=== PATIENT | male | born 1965 | race Caucasian/White ===

== ENCOUNTER 2017-08-18 10:07 | Emergency (ER) | payer MEDICAID ==
[2017-08-18] MEDS ORDERED: methylPREDNISolone sod succ 125mg/2ml vial IM ONE (10:25)
[2017-08-18] MEDS ORDERED: METH4TAB81 PO (10:41)
[2017-08-18 11:13] VITALS: BP 145/89
== END 2017-08-18 11:14 | disposition home or self-care (01) ==
LOC: ER 10:07
DX: M25.461 Effusion, right knee (principal); I10 Essential (primary) hypertension; G89.29 Other chronic pain; R11.0 Nausea
CPT/HCPCS: 96372; 99284; J2930

== ENCOUNTER 2017-09-03 22:46 | Emergency (ER) | payer MEDICAID ==
[~2017-09-03] VITALS: Ht 180.3 cm; Wt 95.4 kg
[~2017-09-03 22:46] MED LIST: METH4TAB81 PO
[2017-09-04] MEDS ORDERED: ondansetron/PF 4mg/2ml inj IV ONE (00:40)
[2017-09-04] MEDS ORDERED: normal saline 1000ML IV soln IVB ONE (00:40)
[2017-09-04] MEDS ORDERED: morphine 4 MG/ML inj SYRINge IV ONE (00:40)
[2017-09-04 00:58] LABS: BASOPHILS # (AUTO) 0.1 X10'3 (0-0.2); EOSINOPHILS # (AUTO) 0.2 X10'3 (0-0.9); EOSINOPHILS % (AUTO) 1.7 % (0-6); HEMATOCRIT 50.5 % (42.0-52.0); HEMOGLOBIN 16.6 g/dl (14.0-17.9); LYMPHOCYTES # (AUTO) 3.7 X10'3 (1.1-4.8); LYMPHOCYTES % (AUTO) 31.2 % (21-51); MEAN CORPUSCULAR HEMOGLOBIN 32.1 PG (27.0-31.0); MEAN CORPUSCULAR HGB CONC 32.9 % (33.0-36.5); MEAN CORPUSCULAR VOLUME 97.4 FL (78-98); MEAN PLATELET VOLUME 10.2 FL (7.4-10.4); MONOCYTES # (AUTO) 0.7 X10'3 (0-0.9); MONOCYTES % (AUTO) 5.7 % (2-12); NEUTROPHILS # (AUTO) 7.2 X10'3 (1.8-7.7); NEUTROPHILS % (AUTO) 60.4 % (42-75); PLATELET COUNT 130 X10'3 (140-440); RED BLOOD COUNT 5.19 X10'6 (4.70-6.10); RED CELL DISTRIBUTION WIDTH 12.3 % (11.5-14.5); WHITE BLOOD COUNT 11.9 X10'3 (4.5-11.0)
[2017-09-04 01:09] LABS: ALANINE AMINOTRANSFERASE 31 U/L (12-78); ALBUMIN/GLOBULIN RATIO 1.1 (1.1-1.5); ALKALINE PHOSPHATASE 76 IU/L (46-116); ANION GAP 10 (8-16); ASPARTATE AMINO TRANSFERASE 16 U/L (10-37); BILIRUBIN,TOTAL 0.7 MG/DL (0.1-1.0); BLOOD UREA NITROGEN 9 MG/DL (7-18); BUN/CREATININE RATIO 9.1 (5.4-32.0); CHLORIDE 99 MMOL/L (99-107); CREATININE 0.99 MG/DL (0.60-1.10); GLUCOSE 88 MG/DL (70-104); LIPASE 92 U/L (73-393); SODIUM 136 MMOL/L (135-145); TOTAL CARBON DIOXIDE 27.3 MMOL/L (24-32); TOTAL PROTEIN 7.7 G/DL (6.4-8.2); eGFR 79 ML/MIN
[2017-09-04] MEDS ORDERED: iohexol 300mg/ml 100ml inj. ONE (01:25)
[2017-09-04 02:31] VITALS: BP 108/57
[2017-09-04] MEDS ORDERED: ONDA4TAB9 PO (03:04)
[2017-09-04] MEDS ORDERED: CIPR-259 PO (03:04)
[2017-09-04] MEDS ORDERED: SUCR1TAB34 PO (03:04)
[2017-09-04] MEDS ORDERED: PANT20TA3 PO (03:04)
[2017-09-04] MEDS ORDERED: METR500T PO (03:04)
== END 2017-09-04 03:27 | disposition home or self-care (01) ==
LOC: ER 22:46
DX: K29.80 Duodenitis without bleeding (principal); K27.9 Peptic ulcer, site unspecified, unspecified as acute or chronic, without hemorrhage or perforation; K52.9 Noninfective gastroenteritis and colitis, unspecified; I10 Essential (primary) hypertension; G89.29 Other chronic pain; F17.200 Nicotine dependence, unspecified, uncomplicated; Z79.899 Other long term (current) drug therapy
CPT/HCPCS: 36415; 74177; 76700; 80053; 83690; 85025; 96361; 96374; 96375; 99285; J2270; J2405; J7030; Q9967

== ENCOUNTER 2018-03-20 17:48 | Emergency (ER) | payer MEDICAID ==
[~2018-03-20] VITALS: Ht 180.3 cm; Wt 112.7 kg
[~2018-03-20 17:48] MED LIST changes: +PANT20TA3 PO; +SUCR1TAB34 PO
[2018-03-20 19:27] LABS: BASOPHILS % (AUTO) 0.6 % (0-1); EOSINOPHILS # (AUTO) 0.2 X10'3 (0-0.9); EOSINOPHILS % (AUTO) 2.5 % (0-6); HEMATOCRIT 51.2 % (42.0-52.0); HEMOGLOBIN 17.3 g/dl (14.0-17.9); LYMPHOCYTES # (AUTO) 2.6 X10'3 (1.1-4.8); LYMPHOCYTES % (AUTO) 32.5 % (21-51); MEAN CORPUSCULAR HEMOGLOBIN 33.7 PG (27.0-31.0); MEAN CORPUSCULAR HGB CONC 33.8 % (33.0-36.5); MEAN CORPUSCULAR VOLUME 99.9 FL (78-98); MEAN PLATELET VOLUME 10.1 FL (7.4-10.4); MONOCYTES # (AUTO) 0.5 X10'3 (0-0.9); MONOCYTES % (AUTO) 6.4 % (2-12); NEUTROPHILS # (AUTO) 4.7 X10'3 (1.8-7.7); PLATELET COUNT 122 X10'3 (140-440); RED BLOOD COUNT 5.12 X10'6 (4.70-6.10); RED CELL DISTRIBUTION WIDTH 12.6 % (11.5-14.5)
[2018-03-20 19:35] LABS: CLARITY,URINE CLEAR (Clear); COLOR,URINE YELLOW (Yellow); GLUCOSE, URINE NEGATIVE (Neg); KETONES,URINE NEGATIVE (Neg); NITRITES, URINE NEGATIVE (Neg); OCCULT BLOOD,URINE NEGATIVE (Neg); PH,URINE 5.5 (4.8-8.0); PROTEIN,URINE NEGATIVE (Neg); UA COLLECTION TYPE VOIDED; UROBILINOGEN,URINE 0.2 E.U/dL (0.2-1.0)
[2018-03-20 19:36] LABS: LEUKOCYTE ESTERASE ,URINE NEGATIVE (Neg)
[2018-03-20 19:42] LABS: ALANINE AMINOTRANSFERASE 48 U/L (12-78); ALBUMIN 4.2 G/DL (3.4-5.0); ALBUMIN/GLOBULIN RATIO 1.1 (1.1-1.5); ALKALINE PHOSPHATASE 63 IU/L (46-116); ANION GAP 10 (8-16); ASPARTATE AMINO TRANSFERASE 27 U/L (10-37); BILIRUBIN,TOTAL 0.8 MG/DL (0.1-1.0); BLOOD UREA NITROGEN 9 MG/DL (7-18); BUN/CREATININE RATIO 9.8 (5.4-32.0); CALCIUM 9.3 MG/DL (8.5-10.1); CHLORIDE 100 MMOL/L (99-107); CREATININE 0.92 MG/DL (0.60-1.10); GLUCOSE 101 MG/DL (70-104); LIPASE 80 U/L (73-393); PROTHROMBIN TIME 10.5 SECONDS (9.0-12.0); SODIUM 139 MMOL/L (135-145); TOTAL CARBON DIOXIDE 28.8 MMOL/L (24-32); TOTAL PROTEIN 7.9 G/DL (6.4-8.2); eGFR 86 ML/MIN
[2018-03-20 19:49] LABS: POTASSIUM 4.2 MMOL/L (3.5-5.1)
[2018-03-20] MEDS ORDERED: ketorolac trometh. 30mg/ml inj. IV ONE (20:15)
[2018-03-20] MEDS ORDERED: DICL50TA8 PO (20:16)
[2018-03-20] MEDS ORDERED: CYCL-1 PO (20:16)
[2018-03-20 20:31] VITALS: BP 153/83
== END 2018-03-20 20:45 | disposition home or self-care (01) ==
LOC: ER 17:49
DX: M54.5 Low back pain (principal); R07.81 Pleurodynia; I10 Essential (primary) hypertension; G89.29 Other chronic pain; Z79.899 Other long term (current) drug therapy
CPT/HCPCS: 36415; 80053; 81003; 83690; 85025; 85610; 96374; 99283; J1885

== ENCOUNTER 2024-05-14 20:41 | Inpatient (IN) | payer MEDICAID ==
[~2024-05-14] VITALS: Ht 180.3 cm; Wt 98.6 kg
[~2024-05-14 20:41] MED LIST changes: +CYCL-1 PO; +DICL50TA8 PO; +PANT20TA18 PO; -PANT20TA3 PO
[2024-05-14] MEDS ORDERED: iohexol 350MG/ML 100ml bottle IV ONE (20:43)
[2024-05-14 21:05] LABS: BASOPHILS % (AUTO) 0.4 % (0-1); EOSINOPHILS # (AUTO) 0.1 X10'3 (0-0.9); EOSINOPHILS % (AUTO) 0.7 % (0-6); HEMATOCRIT 49.3 % (42.0-52.0); HEMOGLOBIN 16.5 g/dl (14.0-17.9); LYMPHOCYTES # (AUTO) 3.8 X10'3 (1.1-4.8); MEAN CORPUSCULAR HEMOGLOBIN 34.1 PG (27.0-31.0); MEAN CORPUSCULAR HGB CONC 33.4 g/dL (33.0-36.5); MEAN CORPUSCULAR VOLUME 102.3 FL (78-98); MEAN PLATELET VOLUME 9.2 FL (7.4-10.4); MONOCYTES # (AUTO) 0.5 X10'3 (0-0.9); NEUTROPHILS # (AUTO) 5.9 X10'3 (1.8-7.7); NEUTROPHILS % (AUTO) 56.9 % (42-75); PLATELET COUNT 109 X10'3 (140-440); RED BLOOD COUNT 4.82 X10'6 (4.70-6.10); RED CELL DISTRIBUTION WIDTH 13.9 % (11.5-14.5); WHITE BLOOD COUNT 10.3 X10'3 (4.5-11.0)
[2024-05-14 21:20] LABS: APTT 27 SECONDS (22-32); INR 1.1 INR
[2024-05-14 21:24] LABS: ALANINE AMINOTRANSFERASE 48 U/L (12-78); ALBUMIN 4.1 G/DL (3.4-5.0); ALBUMIN/GLOBULIN RATIO 1.2 (1.1-1.5); ALKALINE PHOSPHATASE 64 IU/L (46-116); ANION GAP 4 (8-16); ASPARTATE AMINO TRANSFERASE 28 U/L (10-37); BILIRUBIN,TOTAL 0.5 MG/DL (0.1-1.0); BLOOD UREA NITROGEN 12 MG/DL (7-18); CALCIUM 9.4 MG/DL (8.5-10.1); CHLORIDE 98 MMOL/L (99-107); GLUCOSE 91 MG/DL (70-104); POTASSIUM 3.9 MMOL/L (3.5-5.1); SODIUM 137 MMOL/L (135-145); TOTAL CARBON DIOXIDE 35.1 MMOL/L (24-32); TOTAL PROTEIN 7.5 G/DL (6.4-8.2); eCRCL 84 ML/MIN; eGFR 76 ML/MIN
[2024-05-14 22:20] LABS: BILIRUBIN,URINE NEGATIVE (Neg); CLARITY,URINE CLEAR (Clear); COLOR,URINE YELLOW (Yellow); GLUCOSE, URINE NEGATIVE (Neg); KETONES,URINE NEGATIVE (Neg); LEUKOCYTE ESTERASE ,URINE NEGATIVE (Neg); NITRITES, URINE NEGATIVE (Neg); OCCULT BLOOD,URINE NEGATIVE (Neg); PROTEIN,URINE NEGATIVE (Neg); UROBILINOGEN,URINE 0.2 E.U/dL (0.2-1.0)
[2024-05-14 22:25] LABS: UA COLLECTION TYPE CLN CATCH MIDSTREAM
[2024-05-14] MEDS: normal saline 1000ml 1,000 ML IV ONE (22:30)
[2024-05-14] MEDS: metoprolol tartrate 1mg/ml inj IV ONE (23:36)
[2024-05-14] MEDS: aspirin 325mg tablet PO ONE (23:49)
[2024-05-15] MEDS ORDERED: magnesium Cl slow-release 64mg tablet PO PRN (01:05)
[2024-05-15] MEDS ORDERED: acetaminophen 325mg tablet PO PRN ×2 (01:05)
[2024-05-15] MEDS ORDERED: ondansetron/PF 4mg/2ml inj IV PRN (01:05)
[2024-05-15] MEDS ORDERED: mag hydrox/Alum hydrox/simeth 30ml oral suspension PO PRN (01:05)
[2024-05-15] MEDS ORDERED: magnesium sulf-water 4G/100mL 100 ML IV PRN (01:05)
[2024-05-15] MEDS ORDERED: potassium Cl 20 mEq SR tablet PO PRN ×2 (01:05)
[2024-05-15] MEDS ORDERED: magnesium sulf-water 2g/50mL 50 ML IV PRN (01:05)
[2024-05-15] MEDS ORDERED: potassium Cl 40MEQ/1/2NS 520ml 520 ML IV PRN (01:05)
[2024-05-15] MEDS ORDERED: HYDROcodone/acetaminophen 5mg/325mg tablet PO PRN (01:05)
[2024-05-15] MEDS: normal saline 1000ml 1,000 ML IV SCH (01:25)
[2024-05-15 02:01] LABS: HEMOGLOBIN A1C 5.2 % (4.5-6.2)
[2024-05-15 02:04] LABS: CHOL/HDL RATIO 2.3 (0.00-4.99); CHOLESTEROL 129 MG/DL (0-200); FREE T4 (FREE THYROXINE) 0.89 NG/DL (0.73-1.40); HDL CHOLESTEROL 57 MG/DL (35-60); LDL CHOLESTEROL 49 MG/DL (50-100); MAGNESIUM 1.5 MG/DL (1.5-2.4); THYROID STIMULATING HORMONE 1.25 ulU/ml (0.34-4.50); TRIGLYCERIDES 156 MG/DL (20-135)
[2024-05-15 02:19] LABS: APTT 26 SECONDS (22-32); INR 1.1 INR; PROTHROMBIN TIME 11.1 SECONDS (9.0-12.0)
[2024-05-15] MEDS: K and/or MAG REPLACEMENT MC SCH (08:00)
[2024-05-15] MEDS: enoxaparin 40mg/0.4ml syringe SUBCUT SCH (08:00)
[2024-05-15] MEDS: atorvastatin 20mg tablet PO SCH (09:02)
[2024-05-15] MEDS: metoprolol tartrate 50mg tablet PO SCH (09:08)
[2024-05-15] MEDS ORDERED: ATOR10TA87 PO (11:14)
[2024-05-15] MEDS ORDERED: LISI40TA13 PO (11:14)
[2024-05-15 11:15] VITALS: BP 92/69; PULSE 60; RESP 16; TEMP 97.4; O2SAT 95
[2024-05-15] MEDS: ringers solution, lacted 1,000 ML IV ONE (13:15)
[2024-05-15 15:00] VITALS: BP 137/65; PULSE 86; RESP 17; TEMP 97.5; O2SAT 96
[2024-05-15 18:00] VITALS: BP 97/71; PULSE 65; RESP 16; TEMP 98.4; O2SAT 96
[2024-05-15 22:00] VITALS: BP 117/68; PULSE 100; RESP 18; TEMP 98.1; O2SAT 91
[2024-05-16] VITALS (7 sets, daily range): BP systolic 98–147; BP diastolic 66–89; PULSE 91–122; RESP 15–20; TEMP 97–98.2; O2SAT 95–98
[2024-05-16 06:35] LABS: EOSINOPHILS # (AUTO) 0.1 X10'3 (0-0.9); MEAN CORPUSCULAR HGB CONC 33.5 g/dL (33.0-36.5); MONOCYTES # (AUTO) 0.4 X10'3 (0-0.9); RED BLOOD COUNT 4.37 X10'6 (4.70-6.10); WHITE BLOOD COUNT 6.8 X10'3 (4.5-11.0)
[2024-05-16 06:38] LABS: BASOPHILS % (AUTO) 0.5 % (0-1); EOSINOPHILS % (AUTO) 1.1 % (0-6); HEMATOCRIT 44.7 % (42.0-52.0); LYMPHOCYTES # (AUTO) 2.7 X10'3 (1.1-4.8); LYMPHOCYTES % (AUTO) 40.1 % (21-51); MEAN CORPUSCULAR HEMOGLOBIN 34.3 PG (27.0-31.0); MEAN CORPUSCULAR VOLUME 102.3 FL (78-98); MEAN PLATELET VOLUME 9.6 FL (7.4-10.4); MONOCYTES % (AUTO) 5.7 % (2-12); NEUTROPHILS # (AUTO) 3.6 X10'3 (1.8-7.7); NEUTROPHILS % (AUTO) 52.6 % (42-75); PLATELET COUNT 85 X10'3 (140-440); RED CELL DISTRIBUTION WIDTH 13.7 % (11.5-14.5)
[2024-05-16 07:30] LABS: ALBUMIN 3.4 G/DL (3.4-5.0); ANION GAP 6 (8-16); BLOOD UREA NITROGEN 8 MG/DL (7-18); BUN/CREATININE RATIO 12.3 (10.0-20.0); CALCIUM 8.8 MG/DL (8.5-10.1); CHLORIDE 105 MMOL/L (99-107); CHOL/HDL RATIO 2.2 (0.00-4.99); CHOLESTEROL 109 MG/DL (0-200); CREATININE 0.65 MG/DL (0.60-1.10); GLUCOSE 78 MG/DL (70-104); HDL CHOLESTEROL 49 MG/DL (35-60); LDL CHOLESTEROL 42 MG/DL (50-100); MAGNESIUM 1.8 MG/DL (1.5-2.4); PHOSPHORUS 3.1 MG/DL (2.3-4.5); POTASSIUM 4.2 MMOL/L (3.5-5.1); SODIUM 141 MMOL/L (135-145); TOTAL CARBON DIOXIDE 30.2 MMOL/L (24-32); TRIGLYCERIDES 101 MG/DL (20-135); eCRCL 129 ML/MIN; eGFR > 90 ML/MIN
[2024-05-16] MEDS: metoprolol tartrate 25mg tablet PO SCH (08:30)
[2024-05-16] MEDS: apixaban 5mg tablet PO SCH (08:34)
[2024-05-16] MEDS ORDERED: APIX5TAB3 PO (10:03)
[2024-05-16] MEDS ORDERED: LOP25T PO (10:03)
[2024-05-16] MEDS ORDERED: ATOR20TA66 PO (10:03)
[2024-05-16 11:50] LABS: URINE AMPHETAMINE SCREEN NEGATIVE (Neg); URINE BARBITUATE SCREEN NEGATIVE (Neg); URINE BENZODIAZEPINES SCREEN NEGATIVE (Neg); URINE CANNABINOID SCREEN POSITIVE (Neg); URINE COCAINE SCREEN NEGATIVE (Neg); URINE METHADONE SCREEN NEGATIVE (Neg); URINE OPIATE SCREEN NEGATIVE (Neg); URINE PHENCYCLIDINE SCREEN NEGATIVE (Neg)
[2024-05-17 02:00] VITALS: BP 111/82; PULSE 105; RESP 16; TEMP 97.9; O2SAT 95
[2024-05-17 07:00] VITALS: BP 113/85; PULSE 117; RESP 16; TEMP 97.7; O2SAT 95
[2024-05-17 07:05] LABS: BASOPHILS % (AUTO) 0.4 % (0-1); EOSINOPHILS # (AUTO) 0.1 X10'3 (0-0.9); EOSINOPHILS % (AUTO) 0.9 % (0-6); HEMATOCRIT 44.7 % (42.0-52.0); LYMPHOCYTES # (AUTO) 2.3 X10'3 (1.1-4.8); LYMPHOCYTES % (AUTO) 35.2 % (21-51); MEAN CORPUSCULAR HGB CONC 33.5 g/dL (33.0-36.5); MEAN CORPUSCULAR VOLUME 101.4 FL (78-98); MEAN PLATELET VOLUME 9.3 FL (7.4-10.4); MONOCYTES # (AUTO) 0.4 X10'3 (0-0.9); NEUTROPHILS # (AUTO) 3.7 X10'3 (1.8-7.7); NEUTROPHILS % (AUTO) 57.5 % (42-75); PLATELET COUNT 79 X10'3 (140-440); RED BLOOD COUNT 4.41 X10'6 (4.70-6.10); RED CELL DISTRIBUTION WIDTH 13.5 % (11.5-14.5); WHITE BLOOD COUNT 6.4 X10'3 (4.5-11.0)
[2024-05-17 07:33] LABS: ANION GAP 8 (8-16); BLOOD UREA NITROGEN 9 MG/DL (7-18); BUN/CREATININE RATIO 12.7 (10.0-20.0); CHLORIDE 102 MMOL/L (99-107); CREATININE 0.71 MG/DL (0.60-1.10); GLUCOSE 90 MG/DL (70-104); POTASSIUM 3.9 MMOL/L (3.5-5.1); SODIUM 137 MMOL/L (135-145); TOTAL CARBON DIOXIDE 26.9 MMOL/L (24-32)
[2024-05-17 07:34] LABS: ALBUMIN 3.4 G/DL (3.4-5.0); CALCIUM 9.1 MG/DL (8.5-10.1); MAGNESIUM 1.8 MG/DL (1.5-2.4); PHOSPHORUS 3.5 MG/DL (2.3-4.5); eCRCL 118 ML/MIN; eGFR > 90 ML/MIN
[2024-05-17] MEDS: losartan 25mg tablet PO SCH (10:59)
[2024-05-17 11:00] VITALS: BP 107/61; PULSE 105; RESP 18; TEMP 97.6; O2SAT 96
[2024-05-17 15:00] VITALS: BP 124/78; PULSE 88; RESP 14; TEMP 97.8; O2SAT 95
[2024-05-17] MEDS ORDERED: METO-395 PO (17:11)
[2024-05-17] MEDS ORDERED: SPIR25TA PO (17:11)
[2024-05-17] MEDS ORDERED: SACU1TAB PO (17:11)
[2024-05-17] MEDS ORDERED: EMPA10TA PO (17:12)
[2024-05-17] MEDS ORDERED: sacubitril/valsartan 24mg-26mg tablet PO SCH (20:00)
[2024-05-17] MEDS ORDERED: carVEDilol 3.125mg tablet PO SCH (20:00)
[2024-05-18] MEDS ORDERED: metoprolol succinate 25mg (24-HOUR) SR. Tablet PO SCH (08:00)
[2024-05-18] MEDS ORDERED: spironolactone 25 MG tablet PO SCH (20:00)
== END 2024-05-17 17:42 | disposition home health service (06) | DRG 45 ==
LOC: ER 20:41 → ED HOLD 23:59 → EDBEDREQ 05-15 08:56 → PCU 3S 05-15 10:17
PROVIDERS: ADMIT Internal Medicine Pulmonary Disease; ATTEND Family Medicine
PROC: B3251ZZ Computerized Tomography (CT Scan) of Bilateral Common Carotid Arteries using Low Osmolar Contrast (ICD-10-PCS; principal; 2024-05-14)
PROC: B32G1ZZ Computerized Tomography (CT Scan) of Bilateral Vertebral Arteries using Low Osmolar Contrast (ICD-10-PCS; 2024-05-14)
PROC: B32R1ZZ Computerized Tomography (CT Scan) of Intracranial Arteries using Low Osmolar Contrast (ICD-10-PCS; 2024-05-14)
PROC: B3281ZZ Computerized Tomography (CT Scan) of Bilateral Internal Carotid Arteries using Low Osmolar Contrast (ICD-10-PCS; 2024-05-14)
DX: I63.412 Cerebral infarction due to embolism of left middle cerebral artery (principal); I42.0 Dilated cardiomyopathy; I48.92 Unspecified atrial flutter; I11.0 Hypertensive heart disease with heart failure; E78.5 Hyperlipidemia, unspecified; F17.200 Nicotine dependence, unspecified, uncomplicated; I48.91 Unspecified atrial fibrillation; I50.32 Chronic diastolic (congestive) heart failure; G89.29 Other chronic pain; M10.9 Gout, unspecified; Z86.73 Personal history of transient ischemic attack (TIA), and cerebral infarction without residual deficits
CPT/HCPCS: 36415; 70450; 70496; 70498; 70551; 71045; 80048; 80053; 80061; 80305; 81003; 82948; 83036; 83735; 84100; 84132; 84439; 84443; 85025; 85610; 85730; 93005; 93306; 97116; 97161; 97530; 99291; A4615; G0378; J1650; J3490; J7030; J7120; Q9967

== ENCOUNTER 2024-09-22 08:34 | Outpatient (CLI) | payer MEDICAID ==
[~2024-09-22 08:34] MED LIST changes: +APIX5TAB3 PO; +ATOR20TA66 PO; -DICL50TA8 PO; +EMPA10TA PO; -METH4TAB81 PO; +METO-395 PO; -PANT20TA18 PO; +SACU1TAB PO; +SPIR25TA PO; -SUCR1TAB34 PO
[2024-09-22 09:22] VITALS: PULSE 83; RESP 14; O2SAT 97
--- NOTE | 2024-09-22 14:22 | PROCEDURE NOTE - Respiratory ---
Procedure Note-Respiratory Providers to [facility] Copies To 1: VENKATA ROMEO DO Procedure Name: This is a spirometry study dated September 22, 2024. Spirometry measurements: There is significant reduction in both the forced vital capacity and the FEV1 measurements. The FEV1 ratio is also significantly reduced. All of the measured flow rates show reduction. Bronchodilator was not administered as part of the study. Conclusion: This study shows severe abnormality. There is evidence for obstructive ventilatory defect in the severe category. 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 We have no previous studies for comparison. Complete abstinence from cigarette smoking is recommended. This patient should continue to receive bronchodilator medication. REFUGIO HUNTLEY MD Sep 22, 2024 14:22
== END 2024-09-22 23:59 | disposition home or self-care (01) ==
LOC: RT 08:34
PROVIDERS: ATTEND Family Medicine
DX: R06.02 Shortness of breath (principal); I11.0 Hypertensive heart disease with heart failure; I50.20 Unspecified systolic (congestive) heart failure; I48.92 Unspecified atrial flutter; Z87.891 Personal history of nicotine dependence
CPT/HCPCS: 94010; 94760; A6446; A6449